=== PATIENT | female | born 1945 | race Caucasian/White ===

== ENCOUNTER 2020-09-20 16:18 | Emergency (ER) | payer MEDICARE, OTHER ==
[2020-09-20] MEDS ORDERED: Sodium Chloride 0.9% with KCl 1,000 ML IV SCH (16:30)
--- NOTE | 2020-09-20 17:04 | EDM.PDOC ---
<Jayden Santos - Last Filed: 09/20/20 18:58> ED HPI GENERAL MEDICAL PROBLEM - General Chief Complaint: Gastrointestinal Problem Stated Complaint: SENT BY DR LAM FOR LOW POTASSIUM Time Seen by Provider: 09/20/20 16:27 Source of Information: Reports: Patient, Family, Provider History Limitations: Reports: No Limitations - History of Present Illness INITIAL COMMENTS - FREE TEXT/NARRATIVE: The patient presents for low potassium and elevated calcium. The patient had hysterectomy with bladder sling at [facility] in [place] on 11/03/19. She had to stay in the hospital for 2 nights. She has not felt good since then. She has generalized weakness, nausea, no appetite and she has lost about 50 pounds. She has felt worse this past week. She has not been eating much. She has shortness of breath. She has swelling in both legs. That has been a problem for months. She also was walking on Saturday and her right foot started to hurt. She did not twist it or step wrong. She has no fever, chills, cough, or chest pain. She does have some abdominal pain at times but none now. She has no dysuria. She did vomit this past week. Onset: Gradual Duration: Week(s): Severity: Moderate Improves with: Reports: None Worsens with: Reports: None Associated Symptoms: Reports: Nausea/Vomiting. Denies: Fever/Chills - Related Data Allergies Allergy/AdvReac Type Severity Reaction Status Date / Time Influenza Virus Vaccines Allergy Severe Cannot Verified 09/20/20 16:36 Remember metronidazole [From Flagyl] Allergy Severe Cannot Verified 09/20/20 16:36 Remember petrolatum,white Allergy Severe Cannot Verified 09/20/20 16:36 [From Petroleum Jelly] Remember vaccine adjuvant system, Allergy Severe Cannot Verified 09/20/20 16:36 [id number] liposomal Remember [From Shingrix (PF)] varicella-zoster virus Allergy Severe Cannot Verified 09/20/20 16:36 glycoprotein E, recombinant Remember [From Shingrix (PF)] vaccinations. Allergy Severe Cannot Uncoded 09/20/20 16:36 Remember Home Meds: Home Meds Ciprofloxacin HCl [Cipro] 500 mg PO BID #20 tablet 09/20/20 [Rx] Potassium Chloride [Klor-Con M20] 20 meq PO BID #6 tab.er 09/20/20 [Rx] Past Medical History - Past Surgical History GI Surgical History: Reports: Appendectomy, Cholecystectomy Female Surgical History: Reports: Other (See Below) Other Female Surgeries/Procedures: bladder sling/repair, lumpectomy x7 Social & Family History - Tobacco Use Tobacco Use Status *Q: Never Tobacco User Second Hand Smoke Exposure: No - Recreational Drug Use Recreational Drug Use: No ED ROS GENERAL - Review of Systems Review Of Systems: See Below Constitutional: Reports: Malaise, Weakness, Fatigue. Denies: Fever, Chills HEENT: Reports: No Symptoms Respiratory: Reports: Shortness of Breath. Denies: Cough Cardiovascular: Reports: No Symptoms Endocrine: Reports: Fatigue GI/Abdominal: Reports: Nausea, Vomiting. Denies: Abdominal Pain : Reports: No Symptoms Musculoskeletal: Reports: No Symptoms Skin: Reports: No Symptoms ED EXAM, GI/ABD - Physical Exam Exam: See Below Exam Limited By: No Limitations General Appearance: Alert, No Apparent Distress Ears: Normal External Exam Nose: Normal Inspection Head: Atraumatic, Normocephalic Neck: Normal Inspection Respiratory/Chest: No Respiratory Distress, Lungs Clear, Normal Breath Sounds Cardiovascular: Regular Rate, Rhythm, No Edema, No Murmur GI/Abdominal Exam: Soft, Non-Tender, No Organomegaly, No Mass Extremities: Other (Mild pain to the bottom of her foot. Good sensation and pulses to both feet. Edema to both legs.) Neurological: Alert, Oriented, No Motor/Sensory Deficits #1 Interpretation EKG Date: 09/20/20 Time: 17:36 Rhythm: NSR Rate (Beats/Min): 82 [place]: Normal P-Wave: Present QRS: Normal ST-T: Normal QT: Normal Course - Re-Assessments/Exams Free Text/Narrative Re-Assessment/Exam: 09/20/20 17:26 Dr Lam called in to let me know she was coming in. He wanted an IV NS with 40meq KCL and 750mls of that. I ordered that and zofran 4mg IV, labs, EKG, CXR, and an x-ray of her right foot. 09/20/20 18:58 The x-ray of her foot looks good. Her CXR looks good. Her EKG shows a NSR with no acute changes. 09/20/20 18:59 Her Hgb was low at 10.1. Her D-dimer was elevated at 1.34. Her K is still ow at 3.4. Her creatinine is normal at 1. Her calcium is elevated at 11.8. I did the D-dimer when she came in her and her oxygen saturations were a little low. They are good now. I will need to do a CT angio of her chest. I will also do a CT abdomen and pelvis because of the nausea and abdominal pain post surgery. It is change of shift. Dr Fuentes to take over. Departure - Departure Disposition: Home, Self-Care 01 Clinical Impression: Acute diverticulitis, Hypokalemia, Abdominal pain - Discharge Information Prescriptions: Ciprofloxacin HCl [Cipro] 500 mg PO BID #20 tablet Potassium Chloride [Klor-Con M20] 20 meq PO BID #6 tab.er Referrals: Javier Lam MD [Primary Care Provider] - Forms: ED Department Discharge Additional Instructions: Return to the emergency room with any questions problems or worsening symptoms. Follow-up with your regular physician on or Saturday for recheck. It is recommended you start magnesium oxide 400 mg 1 daily. You are given some potassium chloride take 1 twice daily until all gone total of 6 doses. You have been started on Cipro, this is an antibiotic take it twice daily for 10 days for diverticulitis. This is not quite ideal therapy but you do not tolerate metronidazole, or Flagyl. I offered to put you in the hospital to put you on Zosyn which is a reasonable single alternative treatment for diverticulitis but you wanted to try this first. Sepsis Event Note (ED) - Evaluation Sepsis Screening Result: No Definite Risk <Ryan Fuentes - Last Filed: 09/20/20 22:35> Course - Vital Signs Last Recorded V/S: Last Vital Signs Temp 36.6 C 09/20/20 16:32 Pulse 109 H 09/20/20 16:32 Resp 16 09/20/20 16:32 BP 141/84 H 09/20/20 16:32 Pulse Ox 92 L 09/20/20 16:32 - Orders/Labs/Meds Orders: Active Orders 24 hr Category Date Time Status EKG Documentation Completion [RC] ASDIRECTED Care 09/20/20 17:25 Active Peripheral IV Care [RC] . DIRECTED Care 09/20/20 16:28 Active Abdomen Pelvis w Cont [CT] Stat Exams 09/20/20 18:40 Taken Ang Chest [CT] Stat Exams 09/20/20 18:38 Taken Sodium Chloride 0.9% [Normal Saline] 100 ml Med 09/20/20 19:00 Active IV ASDIRECTED Sodium Chloride 0.9% [Saline Flush] Med 09/20/20 16:28 Active 10 ml FLUSH ASDIRECTED PRN Sodium Chloride 0.9% with KCl [Normal Saline with 40 Med 09/20/20 16:30 Active mEq KCl] 1,000 ml IV ASDIRECTED Peripheral IV Insertion Adult [OM.PC] Routine Oth 09/20/20 16:28 Ordered EKG 12 Lead [EK] Stat Ther 09/20/20 17:25 Ordered Medication Orders Potassium Chloride/Sodium Chloride (Normal Saline With 40 Meq Kcl) 1,000 mls @ 250 mls/hr IV ASDIRECTED JOSH Last Admin: 09/20/20 17:11 Dose: 250 mls/hr Documented by: PRINCE Sodium Chloride (Normal Saline) 100 mls @ 60 mls/hr IV ASDIRECTED JOSH Last Admin: 09/20/20 20:59 Dose: 60 mls/hr Documented by: AMY Sodium Chloride (Sodium Chloride 0.9% 10 Ml Syringe) 10 ml FLUSH ASDIRECTED PRN PRN Reason: Keep Vein Open Last Admin: 09/20/20 20:49 Dose: 10 ml Documented by: Admin: 09/20/20 17:55 Dose: 10 ml Documented by: JOVANNI Labs: Laboratory Tests 09/20/20 09/20/20 09/20/20 Range/Units 17:55 17:55 17:55 WBC 8.95 (3.98-10.04) K/mm3 RBC 3.76 L (3.98-5.22) M/mm3 Hgb 10.1 L (11.2-15.7) gm/dl Hct 32.4 L (34.1-44.9) % MCV 86.2 (79.4-94.8) fl MCH 26.9 (25.6-32.2) pg MCHC 31.2 L (32.2-35.5) g/dl RDW Std Deviation 43.5 (36.4-46.3) fL Plt Count 358 (182-369) K/mm3 MPV 7.8 L (9.4-12.3) fl Neut % (Auto) 80.1 H (34.0-71.1) % Lymph % (Auto) 11.6 L (19.3-51.7) % Johnson % (Auto) 7.6 (4.7-12.5) % Eos % (Auto) 0.3 L (0.7-5.8) Baso % (Auto) 0.2 (0.1-1.2) % Neut # (Auto) 7.16 H (1.56-6.13) K/mm3 Lymph # (Auto) 1.04 L (1.18-3.74) K/mm3 Johnson # (Auto) 0.68 H (0.24-0.36) K/mm3 Eos # (Auto) 0.03 L (0.04-0.36) K/mm3 Baso # (Auto) 0.02 (0.01-0.08) K/mm3 D-Dimer, Quantitative (0.19-0.50) mg/L Sodium 139 (136-145) mEq/L Potassium 2.4 L* (3.5-5.1) mEq/L Chloride 100 (98-107) mEq/L Carbon Dioxide 34 H (21-32) mEq/L Anion Gap 7.4 (5-15) BUN 12 (7-18) mg/dL Creatinine 1.0 (0.55-1.02) mg/dL Est Cr Clr Drug Dosing TNP Estimated GFR (MDRD) 54 (>60) mL/min BUN/Creatinine Ratio 12.0 L (14-18) Glucose 82 (70-99) mg/dL Calcium 11.8 H (8.5-10.1) mg/dL Magnesium (1.8-2.4) mg/dL Total Bilirubin 1.2 H (0.2-1.0) mg/dL AST 13 L (15-37) U/L ALT 12 L (14-59) U/L Alkaline Phosphatase 98 (46-116) U/L Troponin I < 0.017 (0.00-0.056) ng/mL NT-Pro-B Natriuret Pep 464 H (0-450) pg/mL Total Protein 5.8 L (6.4-8.2) g/dl Albumin 2.4 L (3.4-5.0) g/dl Globulin 3.4 gm/dL Albumin/Globulin Ratio 0.7 L (1-2) 09/20/20 09/20/20 09/20/20 Range/Units 17:55 17:55 20:27 WBC (3.98-10.04) K/mm3 RBC (3.98-5.22) M/mm3 Hgb (11.2-15.7) gm/dl Hct (34.1-44.9) % MCV (79.4-94.8) fl MCH (25.6-32.2) pg MCHC (32.2-35.5) g/dl RDW Std Deviation (36.4-46.3) fL Plt Count (182-369) K/mm3 MPV (9.4-12.3) fl Neut % (Auto) (34.0-71.1) % Lymph % (Auto) (19.3-51.7) % Johnson % (Auto) (4.7-12.5) % Eos % (Auto) (0.7-5.8) Baso % (Auto) (0.1-1.2) % Neut # (Auto) (1.56-6.13) K/mm3 Lymph # (Auto) (1.18-3.74) K/mm3 Johnson # (Auto) (0.24-0.36) K/mm3 Eos # (Auto) (0.04-0.36) K/mm3 Baso # (Auto) (0.01-0.08) K/mm3 D-Dimer, Quantitative 1.34 H (0.19-0.50) mg/L Sodium (136-145) mEq/L Potassium 2.9 L (3.5-5.1) mEq/L Chloride (98-107) mEq/L Carbon Dioxide (21-32) mEq/L Anion Gap (5-15) BUN (7-18) mg/dL Creatinine (0.55-1.02) mg/dL Est Cr Clr Drug Dosing Estimated GFR (MDRD) (>60) mL/min BUN/Creatinine Ratio (14-18) Glucose (70-99) mg/dL Calcium (8.5-10.1) mg/dL Magnesium 1.6 L (1.8-2.4) mg/dL Total Bilirubin (0.2-1.0) mg/dL AST (15-37) U/L ALT (14-59) U/L Alkaline Phosphatase (46-116) U/L Troponin I (0.00-0.056) ng/mL NT-Pro-B Natriuret Pep (0-450) pg/mL Total Protein (6.4-8.2) g/dl Albumin (3.4-5.0) g/dl Globulin gm/dL Albumin/Globulin Ratio (1-2) Meds: Medications Generic Name Dose Route Start Last Admin Trade Name Dionq PRN Reason Stop Dose Admin Potassium Chloride/Sodium Chloride 1,000 mls @ 250 mls/hr 09/20/20 16:30 09/20/20 17:11 Normal Saline With 40 Meq Kcl IV 250 mls/hr ASDIRECTED JOSH Administration Sodium Chloride 100 mls @ 60 mls/hr 09/20/20 19:00 09/20/20 20:59 Normal Saline IV 60 mls/hr ASDIRECTED JOSH Administration Sodium Chloride 10 ml 09/20/20 16:28 09/20/20 20:49 Sodium Chloride 0.9% 10 Ml Syringe FLUSH 10 ml ASDIRECTED PRN Administration Keep Vein Open Discontinued Medications Generic Name Dose Route Start Last Admin Trade Name Babita PRN Reason Stop Dose Admin Iopamidol 100 ml 09/20/20 18:55 Iopamidol 755 Mg/Ml 100 Ml Bottle IVPUSH 09/20/20 18:56 ONETIME ONE Iopamidol 100 ml 09/20/20 18:56 09/20/20 20:59 Iopamidol 755 Mg/Ml 100 Ml Bottle IVPUSH 09/20/20 18:57 100 ml ONETIME ONE Administration Ondansetron HCl 4 mg 09/20/20 16:57 09/20/20 17:55 Ondansetron 4 Mg/2 Ml Sdv IVPUSH 09/20/20 16:58 Not Given ONETIME ONE Potassium Chloride 40 meq 09/20/20 20:06 09/20/20 21:18 Potassium Chloride 20 Meq Tab.Er PO 09/20/20 20:07 40 meq ONETIME ONE Administration Sodium Chloride 10 ml 09/20/20 18:55 Sodium Chloride 0.9% 10 Ml Sdv FLUSH 09/20/20 18:56 ONETIME ONE - Re-Assessments/Exams Free Text/Narrative Re-Assessment/Exam: 09/20/20 22:22 Wound care at change of shift her potassium went up to 2.9 after almost 3 aliqu ots potassium we gave a fourth and 40 mEq of oral potassium. Her magnesium is low at 1.8 it is recommended she take 400 mg of magnesium oxide daily I discussed this with the patient. Imaging studies patient had a CTA of her chest which was negative for PE showed some mild atherosclerotic disease aorta appeared normal she is got up moderate hiatal hernia and with a tiny pericardial effusion. CT of the abdomen shows acute uncomplicated sigmoid diverticulitis the hiatal hernia mild cardiomegaly 3 mm nonobstructing left kidney stone the appendix is not positive definitively identified however no secondary changes of appendicitis are noted. X-ray of her right foot is negative for acute changes some degenerative changes noted x-ray of her chest nondiagnostic findings which are incidental nothing acute. I discussed all the findings of the lab work with the patient and have recommended inpatient treatment for her diverticulitis as the patient cannot tolerate Flagyl. And the most logical approach would be IV Zosyn however the patient does not want to do this. Offered to start her on Levaquin but the patient has not done well with Levaquin in the past she wants to be started on Cipro so I will give her prescription for Cipro for her to start tomorrow morning and take until gone she can follow-up with Dr. Blanc in 2 days for recheck Departure - Departure Time of Disposition: 22:25 Sepsis Event Note (ED) - Focused Exam Vital Signs: Vital Signs Temp Pulse Resp BP Pulse Ox 09/20/20 16:32 36.6 C 109 H 16 141/84 H 92 L
[2020-09-20] MEDS: Ondansetron 4 MG/2 ML SDV IVPUSH ONE ×2 (17:11→17:55)
[2020-09-20] MEDS: Sodium Chloride 0.9% 10 ML Syringe FLUSH PRN ×2 (17:55→20:49)
[2020-09-20] MEDS ORDERED: Sodium Chloride 0.9% 10 ML SDV FLUSH ONE (18:55)
[2020-09-20] MEDS ORDERED: Iopamidol 755 Mg/ML 100 ML Bottle IVPUSH ONE ×2 (18:55→18:56)
[2020-09-20] MEDS ORDERED: Sodium Chloride 0.9% 100 ML IV SCH (19:00)
[2020-09-20] MEDS ORDERED: Potassium Chloride 20 MEQ Tab.ER PO ONE (20:06)
--- NOTE | 2020-09-20 20:51 | CR ---
Chest: Portable view of the chest was obtained. Comparison: No prior chest imaging is available. Heart size is normal for portable technique. Tortuous thoracic aorta is seen. Slight linear density is seen within the left lung base compatible with minimal scarring or atelectasis. Lungs otherwise are clear. Old healed fracture is seen within the proximal right humerus. No acute osseous abnormality is appreciated. Impression: 1. Findings which are incidental as noted above. 2. Nothing acute is seen on portable chest x-ray. Diagnostic code #2
--- NOTE | 2020-09-20 20:52 | CR ---
Right foot: 3 views of the right foot were obtained. Comparison: No previous foot study is available. Small plantar spur is noted. Mild joint space narrowing is seen within the first MTP joint. No acute fracture or dislocation is seen. Impression: 1. Slight degenerative change and plantar spur. 2. Nothing acute is seen on 3 view right foot exam. Diagnostic code #2
--- NOTE | 2020-09-21 07:24 | CT ---
CT abdomen and pelvis Technique: Multiple axial sections were obtained from above the dome of the diaphragm inferiorly to the pubic symphysis. Intravenous contrast was utilized. Delayed images were obtained through the bladder. Reconstructed coronal and sagittal images were obtained. Comparison: Previous CT abdomen study of 07/12/10. Findings: Visualized lung bases show linear densities within both sides most likely representing a combination of atelectasis and scarring. Liver shows small low density lesions compatible with multiple small cysts which have occurred from previous CT exam. Spleen appears within normal limits. Gallbladder is not visualized presumably due to previous cholecystectomy. Pancreas is within normal limits. Abdominal aorta shows no aneurysm. No retroperitoneal adenopathy or mesenteric abnormalities are seen. Appendix is not definitely visualized. Diffuse diverticuli are seen within the colon including the sigmoid region. There may be minimal inflammatory change around the sigmoid colon compatible with minimal diverticulitis. No additional inflammatory change or free fluid is seen. No bowel dilatation is appreciated. Bone window settings were reviewed which show scattered degenerative change within the spine. Slight spondylolisthesis noted at L4-5. Impression: 1. Minimal sigmoid diverticulitis. 2. Other findings as noted above which are nonacute. Diagnostic code #3 I agree with preliminary report from [facility], finalized on 09/20/20, 10:36 PM CDT, code 1
--- NOTE | 2020-09-21 07:27 | CT ---
CT chest Technique: Multiple axial sections through the chest were obtained. Intravenous contrast was utilized. Study has been performed as a pulmonary angiogram protocol. Comparison: No prior chest CT, prior chest x-ray of 09/20/20. Findings: Pulmonary arteries are well opacified. No filling defects are seen to indicate pulmonary embolism. Thoracic aorta shows no aneurysm. Mediastinum and hilar regions show no adenopathy. Calcifications are seen within the left breast which are most likely benign. Thyroid gland is somewhat enlarged and contains nodules. Very minimal pericardial effusion is seen. Moderately large hiatal hernia is noted. Slight linear densities are noted within both lung bases, more prominent on left side which most likely represents areas of scarring and probable atelectasis. Lungs otherwise are clear. Impression: 1. No findings of pulmonary embolism. 2. Hiatal hernia. 3. Minimal pericardial effusion. 4. Slight atelectasis and scarring within both lung bases. 5. Enlarged thyroid gland with nodules which most likely is benign given the patient's age. Diagnostic code #2 I agree with preliminary report from [facility], finalized on 09/20/20, 10:39 PM CDT, code 1
== END 2020-09-20 23:00 | disposition home or self-care (01) ==
LOC: JD.ED 16:18
DX: K57.32 Diverticulitis of large intestine without perforation or abscess without bleeding (principal); Z88.7 Allergy status to serum and vaccine; Z88.8 Allergy status to other drugs, medicaments and biological substances; R06.02 Shortness of breath
CPT/HCPCS: 36415; 71045; 71275; 73630; 74177; 80053; 83735; 83880; 84132; 84484; 85025; 85379; 93005; 96365; 96366; 99285; A9270; J3480; Q9967; 93010; 99284; J2405